=== PATIENT | female | born 1950 | race Caucasian/White ===

== ENCOUNTER → 2017-12-27 09:17 | Outpatient (CLI) | payer MEDICARE, OTHER, SELFPAY | PROVIDERS: Family Provider Family Medicine; PCP Family Medicine; Visit Provider Family Medicine | DX: Z78.0 Asymptomatic menopausal state (principal); Z90.722 Acquired absence of ovaries, bilateral; Z79.52 Long term (current) use of systemic steroids | CPT/HCPCS: 77080 ==

== ENCOUNTER → 2018-10-18 08:46 | Outpatient (CLI) | payer MEDICARE, OTHER, SELFPAY ==
--- NOTE | 2018-10-18 | DI.MG.S_ITS ---
BILATERAL DIGITAL SCREENING MAMMOGRAM 3D/2D WITH CAD: 10/18/2018 CLINICAL: Routine screening. Comparison is made to exams dated: 10/14/2017 mammogram, 09/26/2016 mammogram, and 06/25/2015 mammogram - [facility]. The tissue of both breasts is heterogeneously dense. This may lower the sensitivity of mammography. Current study was also evaluated with a Computer Aided Detection (CAD) system. There is a benign biopsy clip in the right breast. No significant masses, calcifications, or other findings are seen in either breast. There has been no significant interval change. IMPRESSION: NEGATIVE There is no mammographic evidence of malignancy. A 1 year screening mammogram is recommended. This exam was interpreted at Station ID: [id number]. NOTE: For mammograms, a report in lay terms will be sent to the patient. Approximately 15% of breast malignancies will not be visualized mammographically. In the management of a palpable breast mass, a negative mammogram must not discourage biopsy of a clinically suspicious lesion. Electronically Signed By: Ritesh selby/víctor:10/18/2018 10:39:49 letter sent: Normal Exam ACR BI-RADS Category 1: Negative 3341F
== END ==
PROVIDERS: Family Provider Family Medicine; PCP Family Medicine; Visit Provider Family Medicine
DX: Z12.31 Encounter for screening mammogram for malignant neoplasm of breast (principal)
CPT/HCPCS: 77063; 77067

== ENCOUNTER → 2018-11-29 07:41 | Outpatient (CLI) | payer MEDICARE, OTHER, SELFPAY ==
[2018-12-03 08:38] LABS: Lipoprofile NMR SEE SEPARATE REPORTS
== END ==
PROVIDERS: PCP Family Medicine; Visit Provider Family Medicine
DX: E78.5 Hyperlipidemia, unspecified (principal)
CPT/HCPCS: 36415; 83704

== ENCOUNTER → 2019-11-23 08:31 | Outpatient (CLI) | payer MEDICARE, OTHER, SELFPAY ==
--- NOTE | 2019-11-23 | DI.MG.S_ITS ---
BILATERAL DIGITAL SCREENING MAMMOGRAM 3D/2D WITH CAD: 11/23/2019 CLINICAL: Routine screening. Comparison is made to exams dated: 10/18/2018 mammogram, 10/14/2017 mammogram, and 09/26/2016 mammogram - [facility]. The tissue of both breasts is heterogeneously dense. This may lower the sensitivity of mammography. Current study was also evaluated with a Computer Aided Detection (CAD) system. There is a biopsy clip in the right breast. No significant masses, calcifications, or other findings are seen in either breast. There has been no significant interval change. IMPRESSION: NEGATIVE There is no mammographic evidence of malignancy. A 1 year screening mammogram is recommended. This exam was interpreted at Station ID: [id number]. NOTE: For mammograms, a report in lay terms will be sent to the patient. Approximately 15% of breast malignancies will not be visualized mammographically. In the management of a palpable breast mass, a negative mammogram must not discourage biopsy of a clinically suspicious lesion. Electronically Signed By: Ritesh selby/víctor:11/25/2019 08:17:12 letter sent: Normal Exam ACR BI-RADS Category 1: Negative 3341F
== END ==
PROVIDERS: PCP Family Medicine; Referring Provider Family Medicine; Visit Provider Family Medicine
DX: Z12.31 Encounter for screening mammogram for malignant neoplasm of breast (principal)
CPT/HCPCS: 77063; 77067

== ENCOUNTER → 2020-10-06 07:47 | Outpatient (CLI) | payer MEDICARE, OTHER, SELFPAY ==
[2020-10-06 08:24] LABS: Add Manual Diff / Slide Review NO; Basophils Absolute Auto 100 /uL (0-100); Basophils Percent Auto 1.3 % (0-2); Eosinophils Absolute Auto 0 /uL (0-450); Hematocrit 37.9 % (36-46); Hemoglobin 12.7 g/dL (12.0-16.0); Lymphocytes Absolute Auto 1500 /uL (1100-4500); Lymphocytes Percent Auto 31.7 % (25-40); Mean Corpuscular HGB Conc 33.4 % (30-36); Mean Corpuscular Hemoglobin 33.1 PG (26-34); Monocytes Absolute Auto 400 /uL (0-900); Monocytes Percent Auto 9.7 % (3-14); Neutrophils Absolute Auto 2600 /uL (1500-7000); Neutrophils Percent Auto 56.3 % (50-75); Platelet Count 205 X10^3/uL (150-400); Red Blood Cell Count 3.83 X10^6/uL (4.0-5.2); White Blood Cell Count 4.6 X10^3/uL (4.5-11.0)
[2020-10-06 08:40] LABS: Alanine Aminotransferase 25 IU/L (<35); Albumin 4.2 g/dL (3.5-5.0); Albumin Globulin Ratio 1.6 (1.0-2.8); Alkaline Phosphatase 54 U/L (38-126); Aspartate Aminotransferase 30 IU/L (14-36); Bilirubin Total 0.4 mg/dL (0.2-1.3); Blood Urea Nitrogen 15 mg/dL (7-17); Calcium 9.3 mg/dL (8.4-10.2); Carbon Dioxide 27 mmol/L (22-32); Chloride 99 mmol/L (98-107); Cholesterol 199 mg/dL (140-199); Estimated Glomerular Filt Rate > 60.0 mL/min (>60); Globulin 2.7 g/dL (1.7-4.1); Glucose 97 mg/dL (80-110); HDL Cholesterol 90 mg/dL (40-60); HEMOLYSIS < 15 (0-50); LDL Cholesterol Calculated 95 mg/dL (<100); Potassium 4.3 mmol/L (3.4-5.1); Sodium 131 mmol/L (137-145); Total Protein 6.9 g/dL (6.3-8.2); Triglycerides 68 mg/dL (35-150)
[2020-10-06 09:43] LABS: Thyroid Stimulating Hormone 1.33 uIU/mL (0.47-4.68)
== END ==
PROVIDERS: PCP Family Medicine; Referring Provider Family Medicine; Visit Provider Family Medicine
DX: Z00.00 Encounter for general adult medical examination without abnormal findings (principal); E78.5 Hyperlipidemia, unspecified
CPT/HCPCS: 36415; 80053; 80061; 84443; 85025

== ENCOUNTER 2020-12-10 07:30 | Outpatient (RCR) | payer MEDICARE, OTHER, SELFPAY ==
--- NOTE | 2020-10-20 15:31 | PT.OIE ---
Current Diagnoses Benign paroxysmal vertigo, bilateral (10/20/20) Dizziness and giddiness (10/20/20) Visit Care Team Role Provider Type Katie Marquez MD Attending Provider Physician Primary Care Provider Referring Provider Specialty: [facility] Address: [address] [place] [address], [facility] [place], [address] Email: [email or web address] Physical Therapy Initial Evaluation PT-OP-A Visit Information Start: 10/20/20 08:01 Freq: Status: Active Protocol: Document 10/20/20 13:30 AMB (Rec: 10/20/20 14:50 AMB [email or web address]) Out-Patient Physical Therapy Visit Information Visit Information Visit Type Initial Evaluation Visit Start Time 13:30 Visit Stop Time 14:15 Total Visit Minutes 45 Visit Number 1 PT-OP-B Current Condition Start: 10/20/20 08:01 Freq: Status: Active Protocol: Document 10/20/20 13:30 AMB (Rec: 10/20/20 13:51 AMB [id number]) Current Condition History of Current Condition Onset Date 5 years ago Current Complaints Vertigo History of Current Condition Vertigo comes and goes. The worst was when it lasted all day, was throwing up all day that was the worst in June. Usually lasts about an hour or even seconds. Can come on frequently for a while and then nothing for a few months. Feels fuzzy is the start of the symptoms feels rapid eye movements, nausea is often. Looking down and to the right can bring it on. Looking up while in quadruped in gardening. Denies rolling over in bed, on a bad day openening eyes can trigger dizziness. Denies neck pain denies headaches, denies concussion, denies ear pain/ pressure, hearing loss, denies lightheadedness (was on BP med for rosacea and stopped taking it, but that didn't change sx). Treatment Goals Patient/Caregiver Goals Get rid of vertigo Prior Functional Status Baseline Function- ADL's Independent Baseline Function- Mobility Independent Current Functional Impairments (Reported) Functional Limitations- ADL's Difficulty gardening, working on the computer Personal Factors Other Personal Factors That May Effect Allergies, jaw pain Therapy/Recovery PT-OP-C Subjective Start: 10/20/20 08:01 Freq: Status: Active Protocol: Document 10/20/20 13:30 AMB (Rec: 10/20/20 14:50 AMB [email or web address]) Patient Questionnaires Dizziness Handicap Inventory DHI Score 24 DHI Functional Impairment 20 to 39% Impaired (Score 20- 39) PT-OP-O Vestibular Start: 10/20/20 08:01 Freq: Status: Active Protocol: Document 10/20/20 13:30 AMB (Rec: 10/20/20 14:50 AMB [email or web address]) Vestibular Assessment Screening Tests Vestibular Artery Screen Negative Visual Testing Smooth Pursuits Horizontal WFL Smooth Pursuits Vertical WFL Saccades Horizontal WFL Saccades Vertical WFL Gaze Evoked Nystagmus With Fixation Negative Thrust Head Negative DVA (Line Degradation) 2 Positional Testing [place]-Hallpike Negative Left,Negative Right Rolling Test Negative Left,Negative Right Supine to Sit Negative Sit to Supine Negative Vestibular Function Tests Fukuda Test 90 degree turn L PT-OP-Q Treatments Start: 10/20/20 08:01 Freq: Status: Active Protocol: Document 10/20/20 13:30 AMB (Rec: 10/20/20 15:22 AMB [email or web address]) Neuro Re-Education Treatment Vestibular Rehabilitation X1 Viewing Background plain Distance From Target 5' Speed as tolerated-medium Position standing Reps/Duration 30 PT-OP-T Assessment and Plan Start: 10/20/20 08:01 Freq: Status: Active Protocol: Document 10/20/20 13:30 AMB (Rec: 10/20/20 14:50 AMB [email or web address]) Physical Therapy Assessment Rehab Potential Rehabilitation Potential Fair Evaluation Complexity Number of Personal Factors/Comorbidities 1-2 Number of Body Systems Impaired 3 Clinical Presentation at Evaluation Evolving Impairments Impairments Balance,Functional Activities, Vestibular Goals Two Impairment Functional activities Short Term Goal (STG) Lianna will garden for 30 minutes without dizziness. STG Duration 4 weeks Skilled Nursing Goal (LTG) Lianna will look diagonally without dizziness. LTG Duration 8 weeks One Impairment DVA Short Term Goal (STG) Lianna will tolerate 30 seconds of head turning activities without nausea/dizziness. STG Duration 4 weeks Airplane Pilot Crop Dusting Goal (LTG) Lianna will be consistent and independent with a vestibular HEP. LTG Duration 8 weeks Assessment Summary Assessment Lianna attends physical therapy with a 5 year history of on and off dizziness with nausea. She notes extremely variable course, sometime sx last a few seconds, once they lasted all day, variable frequency. Looking up to the left and down to the right seem to consistently bring on symptoms . She has been doing a variation of Jade Daroff and this seems to help relieve her symptoms when she is symptomatic. All BPPV testing today was negative. She did have symptoms of nausea with DVA line degradation but was officially WNL with 2 line difference, she did have a 90 degree turn with Fukuda stepping. Considering that she denies hypotension, concussion, hearing changes, ear fullness/pain, had a normal brain MRI per her report would consider L sided vestibular hypofuntion, and treat accordingly. Physical Therapy Plan Frequency and Duration Frequency of Treatment 1x/Week Duration of Treatment 8 weeks Plan of Care Start Date 10/20/20 Plan of Care End Date 12/15/20 Therapeutic Interventions Therapeutic Interventions Balance Training,Canalithic Repositioning,Manual Therapy, Neuromuscular Re-education, Self-Care/Home Management, Therapeutic Activities, Therapeutic Exercises, Vestibular Rehabilitation Next Visit Focus/Plan Next Note Type Treatment Note
--- NOTE | 2020-10-20 15:32 | PT.OPPOC ---
Physical, Occupational & Speech Therapy At [facility] Current Diagnoses Benign paroxysmal vertigo, bilateral (10/20/20) Dizziness and giddiness (10/20/20) Visit Care Team Role Provider Type Katie Marquez MD Attending Provider Physician Primary Care Provider Referring Provider Specialty: [facility] Address: [address] [place] [address], [facility] [place], [facility] Email: [email or web address] Plan Of Care PT-OP-T Assessment and Plan Start: 10/20/20 08:01 Freq: Status: Active Protocol: Document 10/20/20 13:30 AMB (Rec: 10/20/20 14:50 AMB [email or web address]) Physical Therapy Assessment Rehab Potential Rehabilitation Potential Fair Evaluation Complexity Number of Personal Factors/Comorbidities 1-2 Number of Body Systems Impaired 3 Clinical Presentation at Evaluation Evolving Impairments Impairments Balance,Functional Activities, Vestibular Goals Two Impairment Functional activities Short Term Goal (STG) Lianna will garden for 30 minutes without dizziness. STG Duration 4 weeks Funeral Pre Arrangement Counselor Goal (LTG) Lianna will look diagonally without dizziness. LTG Duration 8 weeks One Impairment DVA Short Term Goal (STG) Lianna will tolerate 30 seconds of head turning activities without nausea/dizziness. STG Duration 4 weeks Funeral Pre Arrangement Counselor Goal (LTG) Lianna will be consistent and independent with a vestibular HEP. LTG Duration 8 weeks Assessment Summary Assessment Lianna attends physical therapy with a 5 year history of on and off dizziness with nausea. She notes extremely variable course, sometime sx last a few seconds, once they lasted all day, variable frequency. Looking up to the left and down to the right seem to consistently bring on symptoms . She has been doing a variation of Jade Daroff and this seems to help relieve her symptoms when she is symptomatic. All BPPV testing today was negative. She did have symptoms of nausea with DVA line degradation but was officially WNL with 2 line difference, she did have a 90 degree turn with Fukuda stepping. Considering that she denies hypotension, concussion, hearing changes, ear fullness/pain, had a normal brain MRI per her report would consider L sided vestibular hypofuntion, and treat accordingly. Physical Therapy Plan Frequency and Duration Frequency of Treatment 1x/Week Duration of Treatment 8 weeks Plan of Care Start Date 10/20/20 Plan of Care End Date 12/15/20 Therapeutic Interventions Therapeutic Interventions Balance Training,Canalithic Repositioning,Manual Therapy, Neuromuscular Re-education, Self-Care/Home Management, Therapeutic Activities, Therapeutic Exercises, Vestibular Rehabilitation Next Visit Focus/Plan Next Note Type Treatment Note Plan of Care Dates Plan of Care Start Date 10/20/20 Plan of Care End Date 12/15/20 Electronically Signed by: Janey Cooper, PT 10/20/20 [id number] Please Sign and Return: I have reviewed this Plan of Care and certify that the skilled therapy services above are required to meet the patient?s needs. Physician Signature Date Printed Name and Credentials Clinical Instructor Signature Printed Name and Credentials
--- NOTE | 2020-10-27 11:52 | PT.OTN ---
Current Diagnoses Benign paroxysmal vertigo, bilateral (10/27/20) Dizziness and giddiness (10/27/20) Physical Therapy Treatment Note PT-OP-A Visit Information Start: 10/20/20 08:01 Freq: Status: Active Protocol: Document 10/27/20 11:00 AMB (Rec: 10/27/20 11:52 AMB [id number]) Out-Patient Physical Therapy Visit Information Visit Information Visit Type Treatment Note Visit Start Time 11:00 Visit Stop Time 11:45 Total Visit Minutes 45 Visit Number 2 PT-OP-B Current Condition Start: 10/20/20 08:01 Freq: Status: Active Protocol: Document 10/20/20 13:30 AMB (Rec: 10/20/20 13:51 AMB [id number]) Current Condition History of Current Condition Onset Date 5 years ago Current Complaints Vertigo History of Current Condition Vertigo comes and goes. The worst was when it lasted all day, was throwing up all day that was the worst in June. Usually lasts about an hour or even seconds. Can come on frequently for a while and then nothing for a few months. Feels fuzzy is the start of the symptoms feels rapid eye movements, nausea is often. Looking down and to the right can bring it on. Looking up while in quadruped in gardening. Denies rolling over in bed, on a bad day openening eyes can trigger dizziness. Denies neck pain denies headaches, denies concussion, denies ear pain/ pressure, hearing loss, denies lightheadedness (was on BP med for rosacea and stopped taking it, but that didn't change sx). Treatment Goals Patient/Caregiver Goals Get rid of vertigo Prior Functional Status Baseline Function- ADL's Independent Baseline Function- Mobility Independent Current Functional Impairments (Reported) Functional Limitations- ADL's Difficulty gardening, working on the computer Personal Factors Other Personal Factors That May Effect Allergies, jaw pain Therapy/Recovery PT-OP-C Subjective Start: 10/20/20 08:01 Freq: Status: Active Protocol: Document 10/27/20 11:00 AMB (Rec: 10/27/20 11:52 AMB [id number]) OP-PT Subjective Patient Comments Patient Comments Pt reports she has had a couple instances of feeling pulled to the left, no big dizzy spells PT-OP-O Vestibular Start: 10/20/20 08:01 Freq: Status: Active Protocol: Document 10/20/20 13:30 AMB (Rec: 10/20/20 14:50 AMB [email or web address]) Vestibular Assessment Screening Tests Vestibular Artery Screen Negative Visual Testing Smooth Pursuits Horizontal WFL Smooth Pursuits Vertical WFL Saccades Horizontal WFL Saccades Vertical WFL Gaze Evoked Nystagmus With Fixation Negative Thrust Head Negative DVA (Line Degradation) 2 Positional Testing [place]-Hallpike Negative Left,Negative Right Rolling Test Negative Left,Negative Right Supine to Sit Negative Sit to Supine Negative Vestibular Function Tests Fukuda Test 90 degree turn L PT-OP-Q Treatments Start: 10/20/20 08:01 Freq: Status: Active Protocol: Document 10/27/20 11:00 AMB (Rec: 10/27/20 11:52 AMB [id number]) Gym Equipment Shuttle Balance 1 Details RED Reps/Duration 10 min Comments challenging did not do much head turns Neuro Re-Education Treatment Vestibular Rehabilitation X1 Viewing Background plain Distance From Target 5' Speed 55bpm Position standing Reps/Duration 30x5 Other Activities 2 Details 3 step and bow Comments with 1 head turn- pt felt pulled to R [address] Comments horizontal, vertical, diagonal headturns, - looking up to the left/down to the right. [place] pulled to L PT-OP-T Assessment and Plan Start: 10/20/20 08:01 Freq: Status: Active Protocol: Document 10/27/20 11:00 AMB (Rec: 10/27/20 11:52 AMB [id number]) Physical Therapy Assessment Assessment Summary Assessment Lianna responded like a pt with vestibular hypofunction was feeling a bit off after all the exercises, so may have to back off if pt has lingering symptoms that are too detrimental to the rest of her day. Physical Therapy Plan Next Visit Focus/Plan Next Note Type Treatment Note Next Visit Plan Progress VOR and diagonal head turns
--- NOTE | 2020-11-02 11:50 | PT.OTN ---
Current Diagnoses Benign paroxysmal vertigo, bilateral (11/02/20) Dizziness and giddiness (11/02/20) Physical Therapy Treatment Note PT-OP-A Visit Information Start: 10/20/20 08:01 Freq: Status: Active Protocol: Document 11/02/20 07:30 AMB (Rec: 11/02/20 07:50 AMB [id number]) Out-Patient Physical Therapy Visit Information Visit Information Visit Type Treatment Note Visit Start Time 07:30 Visit Stop Time 08:15 Total Visit Minutes 45 Visit Number 3 PT-OP-B Current Condition Start: 10/20/20 08:01 Freq: Status: Active Protocol: Document 10/20/20 13:30 AMB (Rec: 10/20/20 13:51 AMB [id number]) Current Condition History of Current Condition Onset Date 5 years ago Current Complaints Vertigo History of Current Condition Vertigo comes and goes. The worst was when it lasted all day, was throwing up all day that was the worst in June. Usually lasts about an hour or even seconds. Can come on frequently for a while and then nothing for a few months. Feels fuzzy is the start of the symptoms feels rapid eye movements, nausea is often. Looking down and to the right can bring it on. Looking up while in quadruped in gardening. Denies rolling over in bed, on a bad day openening eyes can trigger dizziness. Denies neck pain denies headaches, denies concussion, denies ear pain/ pressure, hearing loss, denies lightheadedness (was on BP med for rosacea and stopped taking it, but that didn't change sx). Treatment Goals Patient/Caregiver Goals Get rid of vertigo Prior Functional Status Baseline Function- ADL's Independent Baseline Function- Mobility Independent Current Functional Impairments (Reported) Functional Limitations- ADL's Difficulty gardening, working on the computer Personal Factors Other Personal Factors That May Effect Allergies, jaw pain Therapy/Recovery PT-OP-C Subjective Start: 10/20/20 08:01 Freq: Status: Active Protocol: Document 11/02/20 07:30 AMB (Rec: 11/02/20 08:17 AMB [id number]) OP-PT Subjective Patient Comments Patient Comments Pt reports she had some symptoms with walking with a friend and turning to look at her, otherwise exercises are going well. PT-OP-O Vestibular Start: 10/20/20 08:01 Freq: Status: Active Protocol: Document 10/20/20 13:30 AMB (Rec: 10/20/20 14:50 AMB [email or web address]) Vestibular Assessment Screening Tests Vestibular Artery Screen Negative Visual Testing Smooth Pursuits Horizontal WFL Smooth Pursuits Vertical WFL Saccades Horizontal WFL Saccades Vertical WFL Gaze Evoked Nystagmus With Fixation Negative Thrust Head Negative DVA (Line Degradation) 2 Positional Testing [place]-Hallpike Negative Left,Negative Right Rolling Test Negative Left,Negative Right Supine to Sit Negative Sit to Supine Negative Vestibular Function Tests Fukuda Test 90 degree turn L PT-OP-Q Treatments Start: 10/20/20 08:01 Freq: Status: Active Protocol: Document 11/02/20 07:30 AMB (Rec: 11/02/20 07:50 AMB [id number]) Neuro Re-Education Treatment Vestibular Rehabilitation X1 Viewing Background plain Distance From Target 5' Speed 55bpm Position standing Reps/Duration 1 minx5 Comments Progressing tolerance for longer duration, added foam and modified tandem stance Other Activities 3 Details quadruped head turns Comments to simulate gardening- not provacative today 2 Details 3 step and bow Comments with 1 head turn- pt felt pulled to R [address] Comments horizontal, vertical, diagonal headturns, - looking up to the left/down to the right. [place] pulled to L PT-OP-T Assessment and Plan Start: 10/20/20 08:01 Freq: Status: Active Protocol: Document 11/02/20 07:30 AMB (Rec: 11/02/20 08:17 AMB [id number]) Physical Therapy Assessment Assessment Summary Assessment encouraged progression of speed of VOR and length of exercise at home. Pt tolerated all exercises with less dizziness today. Physical Therapy Plan Next Visit Focus/Plan Next Note Type Treatment Note Next Visit Plan Progress VOR and diagonal head turns
--- NOTE | 2020-11-11 08:20 | PT.OTN ---
Current Diagnoses Benign paroxysmal vertigo, bilateral (11/11/20) Dizziness and giddiness (11/11/20) Physical Therapy Treatment Note PT-OP-A Visit Information Start: 10/20/20 08:01 Freq: Status: Active Protocol: Document 11/11/20 07:35 AMB (Rec: 11/11/20 08:09 AMB [id number]) Out-Patient Physical Therapy Visit Information Visit Information Visit Type Treatment Note Visit Start Time 07:30 Visit Stop Time 08:15 Total Visit Minutes 45 Visit Number 4 PT-OP-B Current Condition Start: 10/20/20 08:01 Freq: Status: Active Protocol: Document 10/20/20 13:30 AMB (Rec: 10/20/20 13:51 AMB [id number]) Current Condition History of Current Condition Onset Date 5 years ago Current Complaints Vertigo History of Current Condition Vertigo comes and goes. The worst was when it lasted all day, was throwing up all day that was the worst in June. Usually lasts about an hour or even seconds. Can come on frequently for a while and then nothing for a few months. Feels fuzzy is the start of the symptoms feels rapid eye movements, nausea is often. Looking down and to the right can bring it on. Looking up while in quadruped in gardening. Denies rolling over in bed, on a bad day openening eyes can trigger dizziness. Denies neck pain denies headaches, denies concussion, denies ear pain/ pressure, hearing loss, denies lightheadedness (was on BP med for rosacea and stopped taking it, but that didn't change sx). Treatment Goals Patient/Caregiver Goals Get rid of vertigo Prior Functional Status Baseline Function- ADL's Independent Baseline Function- Mobility Independent Current Functional Impairments (Reported) Functional Limitations- ADL's Difficulty gardening, working on the computer Personal Factors Other Personal Factors That May Effect Allergies, jaw pain Therapy/Recovery PT-OP-C Subjective Start: 10/20/20 08:01 Freq: Status: Active Protocol: Document 11/11/20 07:35 AMB (Rec: 11/11/20 08:09 AMB [id number]) OP-PT Subjective Patient Comments Patient Comments Pt is noticing frequent bouts of low intensity dizziness, not full spinning PT-OP-O Vestibular Start: 10/20/20 08:01 Freq: Status: Active Protocol: Document 10/20/20 13:30 AMB (Rec: 10/20/20 14:50 AMB [email or web address]) Vestibular Assessment Screening Tests Vestibular Artery Screen Negative Visual Testing Smooth Pursuits Horizontal WFL Smooth Pursuits Vertical WFL Saccades Horizontal WFL Saccades Vertical WFL Gaze Evoked Nystagmus With Fixation Negative Thrust Head Negative DVA (Line Degradation) 2 Positional Testing [place]-Hallpike Negative Left,Negative Right Rolling Test Negative Left,Negative Right Supine to Sit Negative Sit to Supine Negative Vestibular Function Tests Fukuda Test 90 degree turn L PT-OP-Q Treatments Start: 10/20/20 08:01 Freq: Status: Active Protocol: Document 11/11/20 07:30 AMB (Rec: 11/11/20 08:20 AMB [id number]) Gym Equipment Shuttle Balance 1 Details GREEN Comments better today- challenged by modified tandem Neuro Re-Education Treatment Vestibular Rehabilitation X1 Viewing Background plain/ busy increased challenge Distance From Target 5' Speed 55bpm Position standing Reps/Duration 1 minx5 Comments Progressing tolerance for longer duration, added foam and modified tandem stance Other Activities 3 Details quadruped head turns Comments to simulate gardening- not provacative today 2 Details 3 step and bow Comments with 1 head turn- 1 [address] Comments horizontal, vertical, diagonal headturns, - PT-OP-T Assessment and Plan Start: 10/20/20 08:01 Freq: Status: Active Protocol: Document 11/11/20 07:30 AMB (Rec: 11/11/20 08:20 AMB [id number]) Physical Therapy Assessment Assessment Summary Assessment Encouraged progressing exercises with complicated background/ more challenging foot positions. Pt is more aware of her sx, but the severity of them appears to be decreasing. Physical Therapy Plan Next Visit Focus/Plan Next Note Type Treatment Note Next Visit Plan Progress VOR and diagonal head turns- finalize HEP
--- NOTE | 2020-11-17 12:58 | PT.OTN ---
Current Diagnoses Benign paroxysmal vertigo, bilateral (11/17/20) Dizziness and giddiness (11/17/20) Physical Therapy Treatment Note PT-OP-A Visit Information Start: 10/20/20 08:01 Freq: Status: Active Protocol: Document 11/17/20 09:00 AMB (Rec: 11/17/20 09:34 AMB [id number]) Out-Patient Physical Therapy Visit Information Visit Information Visit Type Treatment Note Visit Start Time 09:00 Visit Stop Time 09:45 Total Visit Minutes 45 Visit Number 5 PT-OP-B Current Condition Start: 10/20/20 08:01 Freq: Status: Active Protocol: Document 10/20/20 13:30 AMB (Rec: 10/20/20 13:51 AMB [id number]) Current Condition History of Current Condition Onset Date 5 years ago Current Complaints Vertigo History of Current Condition Vertigo comes and goes. The worst was when it lasted all day, was throwing up all day that was the worst in June. Usually lasts about an hour or even seconds. Can come on frequently for a while and then nothing for a few months. Feels fuzzy is the start of the symptoms feels rapid eye movements, nausea is often. Looking down and to the right can bring it on. Looking up while in quadruped in gardening. Denies rolling over in bed, on a bad day openening eyes can trigger dizziness. Denies neck pain denies headaches, denies concussion, denies ear pain/ pressure, hearing loss, denies lightheadedness (was on BP med for rosacea and stopped taking it, but that didn't change sx). Treatment Goals Patient/Caregiver Goals Get rid of vertigo Prior Functional Status Baseline Function- ADL's Independent Baseline Function- Mobility Independent Current Functional Impairments (Reported) Functional Limitations- ADL's Difficulty gardening, working on the computer Personal Factors Other Personal Factors That May Effect Allergies, jaw pain Therapy/Recovery PT-OP-C Subjective Start: 10/20/20 08:01 Freq: Status: Active Protocol: Document 11/11/20 07:35 AMB (Rec: 11/11/20 08:09 AMB [id number]) OP-PT Subjective Patient Comments Patient Comments Pt is noticing frequent bouts of low intensity dizziness, not full spinning PT-OP-O Vestibular Start: 10/20/20 08:01 Freq: Status: Active Protocol: Document 10/20/20 13:30 AMB (Rec: 10/20/20 14:50 AMB [id number]) Vestibular Assessment Screening Tests Vestibular Artery Screen Negative Visual Testing Smooth Pursuits Horizontal WFL Smooth Pursuits Vertical WFL Saccades Horizontal WFL Saccades Vertical WFL Gaze Evoked Nystagmus With Fixation Negative Thrust Head Negative DVA (Line Degradation) 2 Positional Testing Pima-Hallpike Negative Left,Negative Right Rolling Test Negative Left,Negative Right Supine to Sit Negative Sit to Supine Negative Vestibular Function Tests Fukuda Test 90 degree turn L PT-OP-Q Treatments Start: 10/20/20 08:01 Freq: Status: Active Protocol: Document 11/17/20 09:00 AMB (Rec: 11/17/20 12:58 AMB [id number]) Gym Equipment Shuttle Balance 1 Details BLUE Comments better today- challenged by modified tandem Neuro Re-Education Treatment Vestibular Rehabilitation X1 Viewing Background plain/ busy increased challenge Distance From Target 5' Position standing Reps/Duration 1 minx5 Comments Progressing tolerance for longer duration, added foam and modified tandem stance Other Activities 3 Details quadruped head turns Comments to simulate gardening- not provacative today 1 Details hallway Comments horizontal, vertical, diagonal headturns, - PT-OP-T Assessment and Plan Start: 10/20/20 08:01 Freq: Status: Active Protocol: Document 11/17/20 09:00 AMB (Rec: 11/17/20 09:34 AMB [id number]) Physical Therapy Assessment Goals Two Impairment Functional activities Short Term Goal (STG) Lianna will garden for 30 minutes without dizziness. STG Duration 4 weeks Jail Goal (LTG) Lianna will look diagonally without dizziness. LTG Duration 8 weeks One Impairment DVA Short Term Goal (STG) Lianna will tolerate 30 seconds of head turning activities without nausea/dizziness. STG Duration MET Card Decorator Goal (LTG) Lianna will be consistent and independent with a vestibular HEP. LTG Duration 8 weeks Assessment Summary Assessment Lianna will be reassesed next visit in 3 weeks, encouraged to increase frequency of exercises to 2-3x/day. Reassess Pima-Hallpike and supine roll test today, which again were negative, would recommend continued progression with current plan. Physical Therapy Plan Next Visit Focus/Plan Next Note Type Treatment Note Next Visit Plan Progress VOR and diagonal head turns- finalize HEP
--- NOTE | 2020-12-10 08:25 | PT.OTN ---
Current Diagnoses Benign paroxysmal vertigo, bilateral (12/10/20) Dizziness and giddiness (12/10/20) Physical Therapy Treatment Note PT-OP-A Visit Information Start: 10/20/20 08:01 Freq: Status: Active Protocol: Document 12/10/20 07:30 AMB (Rec: 12/10/20 08:24 AMB [id number]) Out-Patient Physical Therapy Visit Information Visit Information Visit Type Treatment Note Visit Start Time 07:30 Visit Stop Time 08:15 Total Visit Minutes 45 Visit Number 6 PT-OP-B Current Condition Start: 10/20/20 08:01 Freq: Status: Active Protocol: Document 10/20/20 13:30 AMB (Rec: 10/20/20 13:51 AMB [id number]) Current Condition History of Current Condition Onset Date 5 years ago Current Complaints Vertigo History of Current Condition Vertigo comes and goes. The worst was when it lasted all day, was throwing up all day that was the worst in June. Usually lasts about an hour or even seconds. Can come on frequently for a while and then nothing for a few months. Feels fuzzy is the start of the symptoms feels rapid eye movements, nausea is often. Looking down and to the right can bring it on. Looking up while in quadruped in gardening. Denies rolling over in bed, on a bad day openening eyes can trigger dizziness. Denies neck pain denies headaches, denies concussion, denies ear pain/ pressure, hearing loss, denies lightheadedness (was on BP med for rosacea and stopped taking it, but that didn't change sx). Treatment Goals Patient/Caregiver Goals Get rid of vertigo Prior Functional Status Baseline Function- ADL's Independent Baseline Function- Mobility Independent Current Functional Impairments (Reported) Functional Limitations- ADL's Difficulty gardening, working on the computer Personal Factors Other Personal Factors That May Effect Allergies, jaw pain Therapy/Recovery PT-OP-C Subjective Start: 10/20/20 08:01 Freq: Status: Active Protocol: Document 12/10/20 07:30 AMB (Rec: 12/10/20 08:24 AMB [id number]) OP-PT Subjective Patient Comments Patient Comments Stopped doing exercises regularly and when started doing them again they were a lot harder. PT-OP-O Vestibular Start: 10/20/20 08:01 Freq: Status: Active Protocol: Document 10/20/20 13:30 AMB (Rec: 10/20/20 14:50 AMB [id number]) Vestibular Assessment Screening Tests Vestibular Artery Screen Negative Visual Testing Smooth Pursuits Horizontal WFL Smooth Pursuits Vertical WFL Saccades Horizontal WFL Saccades Vertical WFL Gaze Evoked Nystagmus With Fixation Negative Thrust Head Negative DVA (Line Degradation) 2 Positional Testing Bryan-Hallpike Negative Left,Negative Right Rolling Test Negative Left,Negative Right Supine to Sit Negative Sit to Supine Negative Vestibular Function Tests Fukuda Test 90 degree turn L PT-OP-Q Treatments Start: 10/20/20 08:01 Freq: Status: Active Protocol: Document 12/10/20 07:30 AMB (Rec: 12/10/20 08:24 AMB [id number]) Gym Equipment Shuttle Balance 1 Details BLUE Comments better today- challenged by modified tandem--head turns- diagonal Neuro Re-Education Treatment Vestibular Rehabilitation X1 Viewing Background plain/ busy increased challenge Distance From Target 5' Position standing Reps/Duration 1 minx5 Comments Progressing tolerance for longer duration, added foam and modified tandem stance Other Activities 2 Details 3 step and bow Comments with 1 head turn- 1 Details hallway Comments horizontal, vertical, diagonal headturns, - PT-OP-T Assessment and Plan Start: 10/20/20 08:01 Freq: Status: Active Protocol: Document 12/10/20 07:30 AMB (Rec: 12/10/20 08:24 AMB [id number]) Physical Therapy Assessment Goals Two Impairment Functional activities Short Term Goal (STG) Lianna will garden for 30 minutes without dizziness.-- variable- STG Duration PARTIALLY MET Jail Goal (LTG) Lianna will look diagonally without dizziness. LTG Duration PARTIALLY MET One Impairment DVA Short Term Goal (STG) Lianna will tolerate 30 seconds of head turning activities without nausea/dizziness. STG Duration MET Pig Iron Loader Goal (LTG) Lianna will be consistent and independent with a vestibular HEP. LTG Duration MET Assessment Summary Assessment Lianna decreased the frequency of her exercises and noticed a return of symptoms. she started doing her exercises again and is feeling better now, but not 100%. She knows what to do as far as her exercises, and is ready to discharge, she states she just needs to hold herself accountable to doing her exercises and she should be fine. Physical Therapy Plan Discharge Physical Therapy Discharge Reasons Goals Met
== END 2020-12-10 13:18 | disposition home or self-care (01) ==
LOC: PHYS 07:30
PROVIDERS: PCP Family Medicine; Referring Provider Family Medicine; Visit Provider Family Medicine
DX: H81.13 Benign paroxysmal vertigo, bilateral (principal)
CPT/HCPCS: 97112; 97162

== ENCOUNTER → 2020-12-28 08:08 | Outpatient (CLI) | payer MEDICARE, OTHER, SELFPAY ==
--- NOTE | 2020-12-28 | DI.MG.S_ITS ---
BILATERAL DIGITAL SCREENING MAMMOGRAM 3D/2D WITH CAD: 12/28/2020 CLINICAL: Routine screening. Comparison is made to exams dated: 11/23/2019 mammogram, 10/18/2018 mammogram, 10/14/2017 mammogram, and 09/26/2016 mammogram - [facility]. The tissue of both breasts is heterogeneously dense. This may lower the sensitivity of mammography. Current study was also evaluated with a Computer Aided Detection (CAD) system. There is a biopsy clip in the right breast. No significant masses, calcifications, or other findings are seen in either breast. There has been no significant interval change. IMPRESSION: NEGATIVE There is no mammographic evidence of malignancy. A 1 year screening mammogram is recommended. This exam was interpreted at Station ID: [id number]. NOTE: For mammograms, a report in lay terms will be sent to the patient. Approximately 15% of breast malignancies will not be visualized mammographically. In the management of a palpable breast mass, a negative mammogram must not discourage biopsy of a clinically suspicious lesion. Electronically Signed By: Joon ibarra/víctor:12/28/2020 09:13:18 letter sent: Normal Exam ACR BI-RADS Category 1: Negative 3341F
== END ==
PROVIDERS: PCP Family Medicine; Referring Provider Family Medicine; Visit Provider Family Medicine
DX: Z12.31 Encounter for screening mammogram for malignant neoplasm of breast (principal)
CPT/HCPCS: 77063; 77067

== ENCOUNTER → 2021-12-30 11:29 | Outpatient (CLI) | payer MEDICARE, OTHER, SELFPAY ==
--- NOTE | 2021-12-30 | DI.MG.S_ITS ---
BILATERAL DIGITAL SCREENING MAMMOGRAM 3D/2D WITH CAD: 12/30/2021 CLINICAL: Routine screening. Comparison is made to exams dated: 12/28/2020 mammogram, 11/23/2019 mammogram, and 10/18/2018 mammogram - [facility]. The tissue of both breasts is heterogeneously dense. This may lower the sensitivity of mammography. Current study was also evaluated with a Computer Aided Detection (CAD) system. There is a biopsy clip in the right breast. No significant masses, calcifications, or other findings are seen in either breast. There has been no significant interval change. IMPRESSION: NEGATIVE There is no mammographic evidence of malignancy. A 1 year screening mammogram is recommended. Based on the Tyrer Cuzick model (a risk assessment model) the patient's lifetime risk is 6.1% and her 10 year risk is 4.6%. According to the ACR, ACS, and NCCN guidelines, an annual breast MRI exam along with mammogram is recommended if the patient's lifetime risk is 20% or greater. This exam was interpreted at Station ID: [id number]. NOTE: For mammograms, a report in lay terms will be sent to the patient. Approximately 15% of breast malignancies will not be visualized mammographically. In the management of a palpable breast mass, a negative mammogram must not discourage biopsy of a clinically suspicious lesion. Electronically Signed By: Ritesh selby/víctor:12/30/2021 12:04:21 letter sent: Normal Exam ACR BI-RADS Category 1: Negative 3341F
== END ==
PROVIDERS: PCP Family Medicine; Referring Provider Family Medicine; Visit Provider Family Medicine
DX: Z12.31 Encounter for screening mammogram for malignant neoplasm of breast (principal); Z13.820 Encounter for screening for osteoporosis; Z78.0 Asymptomatic menopausal state; Z90.710 Acquired absence of both cervix and uterus
CPT/HCPCS: 77063; 77067; 77080

== ENCOUNTER → 2023-01-02 12:40 | Outpatient (CLI) | payer MEDICARE, OTHER, SELFPAY ==
--- NOTE | 2023-01-02 | DI.MG.S_ITS ---
BILATERAL DIGITAL SCREENING MAMMOGRAM 3D/2D WITH CAD: 01/02/2023 CLINICAL: Routine screening. Comparison is made to exams dated: 12/30/2021 mammogram, 12/28/2020 mammogram, and 11/23/2019 mammogram - [facility]. Both breasts are heterogeneously dense, which may obscure small masses (category c / 51-75% glandular tissue). Current study was also evaluated with a Computer Aided Detection (CAD) system. There is an asymmetry in the left breast middle depth superior region seen on the mediolateral oblique view only. No other significant masses, calcifications, or other findings are seen in either breast. IMPRESSION: INCOMPLETE: NEEDS ADDITIONAL IMAGING EVALUATION The asymmetry in the left breast is indeterminate. Additional views with possible ultrasound are recommended. Based on the Tyrer Cuzick model (a risk assessment model) the patient's lifetime risk is 5.5% and her 10 year risk is 4.5%. According to the ACR, ACS, and NCCN guidelines, an annual breast MRI exam along with mammogram is recommended if the patient's lifetime risk is 20% or greater. This exam was interpreted at Station ID: [id number]. NOTE: For mammograms, a report in lay terms will be sent to the patient. Approximately 15% of breast malignancies will not be visualized mammographically. In the management of a palpable breast mass, a negative mammogram must not discourage biopsy of a clinically suspicious lesion. Electronically Signed By: Marco Garcia M.D. lc/:01/02/2023 13:59:54 letter sent: Additional Imaging Needed ACR BI-RADS Category 0: Incomplete 3340F
== END ==
PROVIDERS: PCP Family Medicine; Referring Provider Family Medicine; Visit Provider Family Medicine
DX: Z12.31 Encounter for screening mammogram for malignant neoplasm of breast (principal)
CPT/HCPCS: 77063; 77067

== ENCOUNTER → 2023-01-11 08:24 | Outpatient (CLI) | payer MEDICARE, OTHER, SELFPAY ==
--- NOTE | 2023-01-11 | DI.MG.S_ITS ---
UNILATERAL LEFT DIGITAL DIAGNOSTIC MAMMOGRAM 3D/2D WITH ADDITIONAL VIEWS: 01/11/2023 CLINICAL: Additional evaluation requested from prior study. Comparison is made to exams dated: 01/02/2023 mammogram, 12/30/2021 mammogram, and 12/28/2020 mammogram - [facility]. The left breast is heterogeneously dense, which may obscure small masses (category c / 51-75% glandular tissue). Theasymmetry in the left breast middle depth superior region seen on the mediolateral oblique view only is not seen in additional views. No other significant masses or calcifications are seen in the breast. IMPRESSION: BENIGN The left breast asymmetry seen on the screening mammogram likely respresents superimposed fibroglandular tissue and is benign. There is no mammographic evidence of malignancy. Return to annual mammogram screening schedule is recommended. Based on the Tyrer Cuzick model (a risk assessment model) the patient's lifetime risk is 5.5% and her 10 year risk is 4.5%. According to the ACR, ACS, and NCCN guidelines, an annual breast MRI exam along with mammogram is recommended if the patient's lifetime risk is 20% or greater. This exam was interpreted at Station ID: [id number]. NOTE: For mammograms, a report in lay terms will be sent to the patient. Approximately 15% of breast malignancies will not be visualized mammographically. In the management of a palpable breast mass, a negative mammogram must not discourage biopsy of a clinically suspicious lesion. Electronically Signed By: Albina Tao M.D. lk/:01/11/2023 08:56:37 letter sent: Normal Exam ACR BI-RADS Category 2: Benign Finding(s) 3342F
== END ==
PROVIDERS: Family Provider Family Medicine; PCP Family Medicine; Referring Provider Family Medicine; Visit Provider Family Medicine
DX: R92.8 Other abnormal and inconclusive findings on diagnostic imaging of breast (principal)
CPT/HCPCS: 77065; G0279

== ENCOUNTER 2023-04-06 10:30 | Outpatient (RCR) | payer MEDICARE, OTHER, SELFPAY ==
--- NOTE | 2023-02-23 13:08 | PT.OIE ---
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/23) Visit Care Team Role Provider Type Katie Marquez MD Attending Provider Physician Family Provider Primary Care Provider Referring Provider Specialty: Family Practice Address: [address] [place] [address], [address] Email: [email or web address] Physical Therapy Initial Evaluation PT-OP-A Visit Information Start: 02/23/23 08:46 Freq: Status: Active Protocol: Document 02/23/23 08:47 AMH (Rec: 02/23/23 08:52 AMH [id number]) Out-Patient Physical Therapy Visit Information Visit Information Visit Type Initial Evaluation Visit Start Time 08:50 Visit Stop Time 09:35 Total Visit Minutes 45 Evaluation Information Evaluation Date 02/23/23 PT-OP-B Current Condition Start: 02/23/23 08:46 Freq: Status: Active Protocol: Document 02/23/23 08:50 AMH (Rec: 02/23/23 09:31 AMH [id number]) Current Condition History of Current Condition Onset Date Current Complaints overactive bladder with urge incontinence and stress incontinence symptoms History of Current Condition pt reports over active bladder since her hysterectomy in the . She has triggers including if she has been running erands and she comes into the house she can leak and sudden urge. If she has any delay she is unable to stop the leakage. Lianna also describes urinary stress incontinence symptoms with strong cough or sneeze or exercise. Treatment Goals Patient/Caregiver Goals To eliminate urgency and incontinence PT-OP-C Subjective Start: 02/23/23 08:46 Freq: Status: Active Protocol: Document 02/23/23 08:50 AMH (Rec: 02/23/23 13:06 AMH [id number]) Patient Questionnaires Pelvic Pain and Urgency/Frequency Patient Symptom Scale Pelvic Pain Score 6 PT-OP-F Manual Assessment Start: 02/23/23 13:03 Freq: Status: Active Protocol: Document 02/23/23 08:50 AMH (Rec: 02/23/23 13:05 AMH [id number]) Manual Assessments Soft Tissue Assessment Soft Tissue Mobility Assessment with assessment of the abdominal wall there is scar tissue noted in the suprapubic fascia with decreased mobility of the bladder PT-OP-I Pelvic Floor Start: 02/23/23 08:46 Freq: Status: Active Protocol: Document 02/23/23 08:50 [facility] (Rec: 02/23/23 11:13 [facility] [id number]) Pelvic Floor Assessment Urine Pelvic Floor Surgery Yes: Full hysterectomy Urinary Symptoms Urge Sensation Leakage Size Medium Leakage Cause Cough,Exercise,Sneeze,Urge Other Leakage Causes triggers such as comming home after runing errands Leaks Per Day 2 Voiding Frequency 4-8 times per day Nocturia 0-1 Pads Used In 24 Hours 1-2 Urine Pad Type Maxi Pad Pelvic Clock Pelvic Clock 12-3 Atrophy Pelvic Clock 3-6 Atrophy Pelvic Clock 6-9 Atrophy Pelvic Clock 9-12 Atrophy Pelvic Clock Other pt presents with decreased ability to fully relax her pelvic floor following a pelvic floor contraction Contraction Ability Voluntary Contraction Weak Voluntary Relaxation Weak Manual Muscle Testing Left 2 Manual Muscle Testing Right 2 Manual Muscle Testing Anterior 2 Manual Muscle Testing Posterior 2 Muscle Endurance (Seconds) 4 Comments Pelvic Floor Comments pt fatigues quickly with pelvic floor contractions and has decreased ability to relax inbetween contractions as well as poor endurnance of the pelvic floor holds PT-OP-Q Treatments Start: 02/23/23 08:46 Freq: Status: Active Protocol: Document 02/23/23 08:50 [facility] (Rec: 02/23/23 11:07 [facility] [id number]) Therapeutic Exercises Supine Exercises supine ball squeeze with pelvic floor contraction Supine Exercise Name ADDED to HEP Side bilateral Reps/Minutes 10 reps holding 10 seconds and relaxing 10 seconds pelvic floor long holds Reps/Minutes 10 reps holding up to 10 sec and relaxing 10 sec Comments pt advised to cut this to 5 seconds when fatigued PT-OP-T Assessment and Plan Start: 02/23/23 08:46 Freq: Status: Active Protocol: Document 02/23/23 08:50 [facility] (Rec: 02/23/23 12:47 [facility] [id number]) Physical Therapy Assessment Rehab Potential Rehabilitation Potential Excellent Evaluation Complexity Number of Personal Factors/Comorbidities 0 Number of Body Systems Impaired 1-2 Clinical Presentation at Evaluation Stable Impairments Impairments Activity Tolerance,Functional Activities,Soft Tissue Mobility,Strength Other Impairments urinary incontinence and sudden urge to void Goals 3 Impairment Decreased endurance of the pelvic floor with pt fatiguing after a few seconds Short Term Goal (STG) Lianna is able to sustain a pelvic floor contraction in supine x 10 seconds STG Duration 5 weeks Fpc Goal (LTG) Lianna is able to sustain a pelvic floor contraction in standing for 5 seconds LTG Duration 8 weeks 2 Impairment Pelvic floor weakness Short Term Goal (STG) Lianna is given a home exercise program for pelvic floor strengthening STG Duration 3 weeks Healthcare Interpreter Goal (LTG) Lianna is able to increase the strength of the levator ani for improved bladder support by 1 muscle grade or better LTG Duration 8 weeks 1 Impairment urinary urgency with sudden urges to void causing leakage Short Term Goal (STG) Lianna is educated in the urge deference technique/bladder retraining as well as educated on bladder irritants STG Duration 4 weeks Healthcare Interpreter Goal (LTG) Lianna reports a overall reduction in urinary urgency and is better able to contol making it to the bathroom without a leak LTG Duration 8 weeks Assessment Summary Assessment Lianna is a 72 year old female referred to PT with complaints of overactive bladder with sudden urges that will cause her to leak. She also reports symptoms of urinary stress incontinence with cough, sneeze, or exercise. She has a history of a hysterectomy in 1993 and she notes that her symptoms of urgency started then. They have started worsening lately and Lianna notes she has gone from a Mini pad to now using a maxi pad so she now she is seeking treatment to prevent her symptoms from worsening. Lianna states that most of her leakage occurs with specific triggers such as arriving home after errands and when she gets out of the car to head into her house the urgency hits her intensely and she is not able to make it to the bathroom in time. With evaluation today there is a good amount of scar tissue present in the suprapubic fascia from the vertical scar from the hysterectomy surgery. Lianna has tenderness to palpation over the scar. There is decreased fascial mobilty of the suprapubic fascia. With pelvic floor exam Lianna tests 2/5 MMT for all aspects of her levator ani and she lacks endurance to sustain a pelvic floor contraction more than a few seconds. She has a difficult time fully relaxing her pelvic floor muscles after a contraction and fatigues quickly after a few reps. Lianna is a great candidate for pelvic floor therapy using EMG biofeedback for improved strength and endurance of the pelvic floor. She was given a bladder diary today to begin recording her voids and fluid intake. She was educated in the urge deference technique and taught to use this with her triggers. She tolerated treatment well today. Physical Therapy Plan Frequency and Duration Frequency of Treatment 1x/Week Duration of treatment (weeks) 8 Plan of Care Start Date 02/23/23 Plan of Care End Date 04/13/23 Therapeutic Interventions Therapeutic Interventions Home Exercise Program,Manual Therapy,Neuromuscular Re- education,Patient/Caregiver Education,Self-Care/Home Management,Soft Tissue Mobilization,Therapeutic Exercises Modalities Biofeedback Next Visit Focus/Plan Next Note Type Treatment Note Next Visit Plan Work on MFR techniques over the suprapubic fascia, begin EMG biofeedback for endurance training of the pelvic floor
--- NOTE | 2023-02-23 13:08 | PT.OPPOC ---
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/23) Visit Care Team Role Provider Type Kaite Marquez MD Attending Provider Physician Family Provider Primary Care Provider Referring Provider Specialty: Family Practice Address: [address] [place] [address], [facility] [place], [facility] Email: [email or web address] Plan Of Care PT-OP-T Assessment and Plan Start: 02/23/23 08:46 Freq: Status: Active Protocol: Document 02/23/23 08:50 [facility] (Rec: 02/23/23 12:47 [facility] [id number]) Physical Therapy Assessment Rehab Potential Rehabilitation Potential Excellent Evaluation Complexity Number of Personal Factors/Comorbidities 0 Number of Body Systems Impaired 1-2 Clinical Presentation at Evaluation Stable Impairments Impairments Activity Tolerance,Functional Activities,Soft Tissue Mobility,Strength Other Impairments urinary incontinence and sudden urge to void Goals 3 Impairment Decreased endurance of the pelvic floor with pt fatiguing after a few seconds Short Term Goal (STG) Lianna is able to sustain a pelvic floor contraction in supine x 10 seconds STG Duration 5 weeks Assisted Goal (LTG) Lianna is able to sustain a pelvic floor contraction in standing for 5 seconds LTG Duration 8 weeks 2 Impairment Pelvic floor weakness Short Term Goal (STG) Lianna is given a home exercise program for pelvic floor strengthening STG Duration 3 weeks Assisted Goal (LTG) Lianna is able to increase the strength of the levator ani for improved bladder support by 1 muscle grade or better LTG Duration 8 weeks 1 Impairment urinary urgency with sudden urges to void causing leakage Short Term Goal (STG) Lianna is educated in the urge deference technique/bladder retraining as well as educated on bladder irritants STG Duration 4 weeks Assisted Goal (LTG) Lianna reports a overall reduction in urinary urgency and is better able to control making it to the bathroom without a leak LTG Duration 8 weeks Assessment Summary Assessment Lianna is a 72 year old female referred to PT with complaints of overactive bladder with sudden urges that will cause her to leak. She also reports symptoms of urinary stress incontinence with cough, sneeze, or exercise. She has a history of a hysterectomy in 1993 and she notes that her symptoms of urgency started then. They have started worsening lately and Lianna notes she has gone from a Mini pad to now using a maxi pad so she now she is seeking treatment to prevent her symptoms from worsening. Lianna states that most of her leakage occurs with specific triggers such as arriving home after errands and when she gets out of the car to head into her house the urgency hits her intensely and she is not able to make it to the bathroom in time. With evaluation today there is a good amount of scar tissue present in the suprapubic fascia from the vertical scar from the hysterectomy surgery. Lianna has tenderness to palpation over the scar. There is decreased fascial mobility of the suprapubic fascia. With pelvic floor exam Lianna tests 2/5 MMT for all aspects of her levator ani and she lacks endurance to sustain a pelvic floor contraction more than a few seconds. She has a difficult time fully relaxing her pelvic floor muscles after a contraction and fatigues quickly after a few reps. Lianna is a great candidate for pelvic floor therapy using EMG biofeedback for improved strength and endurance of the pelvic floor. She was given a bladder diary today to begin recording her voids and fluid intake. She was educated in the urge deference technique and taught to use this with her triggers. She tolerated treatment well today. Physical Therapy Plan Frequency and Duration Frequency of Treatment 1x/Week Duration of treatment (weeks) 8 Plan of Care Start Date 02/23/23 Plan of Care End Date 04/13/23 Therapeutic Interventions Therapeutic Interventions Home Exercise Program,Manual Therapy,Neuromuscular Re- education,Patient/Caregiver Education,Self-Care/Home Management,Soft Tissue Mobilization,Therapeutic Exercises Modalities Biofeedback Next Visit Focus/Plan Next Note Type Treatment Note Next Visit Plan Work on MFR techniques over the suprapubic fascia, begin EMG biofeedback for endurance training of the pelvic floor Plan of Care Dates Plan of Care Start Date 02/23/23 Plan of Care End Date 04/13/23 Electronically Signed by: Kaylen King, PT 02/23/23 8824 If you are in agreement with this Plan of Care, please return a signed and dated copy. I have reviewed this Plan of Care and certify that the skilled therapy services above are required to meet the patient?s needs. Physician Signature Date Printed Name and Credentials Clinical Instructor Signature Printed Name and Credentials
--- NOTE | 2023-02-28 13:52 | PT.OTN ---
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) Physical Therapy Treatment Note PT-OP-A Visit Information Start: 02/23/23 08:46 Freq: Status: Active Protocol: Document 02/28/23 11:15 [facility] (Rec: 02/28/23 13:50 [facility] [id number]) Out-Patient Physical Therapy Visit Information Visit Information Visit Type Treatment Note Visit Start Time 11:15 Visit Stop Time 12:00 Total Visit Minutes 45 Visit Number 2 PT-OP-B Current Condition Start: 02/23/23 08:46 Freq: Status: Active Protocol: Document 02/23/23 08:50 [facility] (Rec: 02/23/23 09:31 [facility] [id number]) Current Condition History of Current Condition Onset Date Current Complaints overactive bladder with urge incontinence and stress incontinence symptoms History of Current Condition pt reports over active bladder since her hysterectomy in the . She has triggers including if she has been running erands and she comes into the house she can leak and sudden urge. If she has any delay she is unable to stop the leakage. Lianna also describes urinary stress incontinence symptoms with strong cough or sneeze or exercise. Treatment Goals Patient/Caregiver Goals To eliminate urgency and incontinence PT-OP-C Subjective Start: 02/23/23 08:46 Freq: Status: Active Protocol: Document 02/28/23 11:15 [facility] (Rec: 02/28/23 13:50 [facility] [id number]) OP-PT Subjective Patient Comments Patient Comments Lianna notes she can tell she gets fatigued when trying to hold her pelvic floor, she also has been doing her bladder diary at home and can tell she is going to the bathroom a lot just in case Patient Reported Progress Same PT-OP-F Manual Assessment Start: 02/23/23 13:03 Freq: Status: Active Protocol: Document 02/23/23 08:50 [facility] (Rec: 02/23/23 13:05 [facility] [id number]) Manual Assessments Soft Tissue Assessment Soft Tissue Mobility Assessment with assessment of the abdominal wall there is scar tissue noted in the suprapubic fascia with decreased mobility of the bladder PT-OP-I Pelvic Floor Start: 02/23/23 08:46 Freq: Status: Active Protocol: Document 02/23/23 08:50 [facility] (Rec: 02/23/23 11:13 [facility] [id number]) Pelvic Floor Assessment Urine Pelvic Floor Surgery Yes: Full hysterectomy Urinary Symptoms Urge Sensation Leakage Size Medium Leakage Cause Cough,Exercise,Sneeze,Urge Other Leakage Causes triggers such as comming home after runing errands Leaks Per Day 2 Voiding Frequency 4-8 times per day Nocturia 0-1 Pads Used In 24 Hours 1-2 Urine Pad Type Maxi Pad Pelvic Clock Pelvic Clock 12-3 Atrophy Pelvic Clock 3-6 Atrophy Pelvic Clock 6-9 Atrophy Pelvic Clock 9-12 Atrophy Pelvic Clock Other pt presents with decreased ability to fully relax her pelvic floor following a pelvic floor contraction Contraction Ability Voluntary Contraction Weak Voluntary Relaxation Weak Manual Muscle Testing Left 2 Manual Muscle Testing Right 2 Manual Muscle Testing Anterior 2 Manual Muscle Testing Posterior 2 Muscle Endurance (Seconds) 4 Comments Pelvic Floor Comments pt fatigues quickly with pelvic floor contractions and has decreased ability to relax inbetween contractions as well as poor endurnance of the pelvic floor holds PT-OP-Q Treatments Start: 02/23/23 08:46 Freq: Status: Active Protocol: Document 02/28/23 11:15 [facility] (Rec: 02/28/23 13:50 [facility] [id number]) Therapeutic Exercises Supine Exercises modified pelvic floor squat Reps/Minutes hold 1-2 min pelvic floor quick flicks Supine Exercise Name with EMG biofeedback Reps/Minutes x 10 reps supine ball squeeze with pelvic floor contraction Supine Exercise Name ADDED to HEP Side bilateral Reps/Minutes 10 reps holding 10 seconds and relaxing 10 seconds pelvic floor long holds Supine Exercise Name with EMG biofeedback Reps/Minutes 10 reps holding up to 10 sec and relaxing 10 sec Comments 10 sec hold x 10 sec relaxation Manual Therapy Treatment Soft Tissue Mobilization scar tissue mobiilzation of the suprapubic fascia Body Location suprapubic fascia Comments pt is tender in the left side of the bladder, tightness in the suprapubic fascia and restriced bladder mobility Self-Care/Home Management Treatment Education Patient Education Home Exercise Program Other Education reviewed bladder diary and pt was given 2 more weeks of bladder diarys. Urge deference technique was also reviewed. PT-OP-T Assessment and Plan Start: 02/23/23 08:46 Freq: Status: Active Protocol: Document 02/28/23 11:15 [facility] (Rec: 02/28/23 13:50 [facility] [id number]) Physical Therapy Assessment Assessment Summary Assessment EMG biofeedback was initiated today and endurance is lacking , pt did have a elevated resting tone at 4 uv to start and this decreased to baseline following treatment Physical Therapy Plan Frequency and Duration Frequency of Treatment 1x/Week Duration of treatment (weeks) 8 Plan of Care Start Date 02/23/23 Plan of Care End Date 04/13/23 Therapeutic Interventions Therapeutic Interventions Home Exercise Program,Manual Therapy,Neuromuscular Re- education,Patient/Caregiver Education,Self-Care/Home Management,Soft Tissue Mobilization,Therapeutic Exercises Modalities Biofeedback Next Visit Focus/Plan Next Note Type Treatment Note Next Visit Plan Work on MFR techniques over the suprapubic fascia, continue EMG biofeedback for endurance training of the pelvic floor, add in hip ER to HEP
--- NOTE | 2023-03-07 11:50 | PT.OTN ---
Current Diagnoses Overactive bladder (03/07/23) Stress incontinence (female) (male) (03/07/23) Urge incontinence (03/07/23) Pelvic muscle wasting (03/07/23) Physical Therapy Treatment Note PT-OP-A Visit Information Start: 02/23/23 08:46 Freq: Status: Active Protocol: Document 03/07/23 08:47 [facility] (Rec: 03/07/23 09:10 [facility] [id number]) Out-Patient Physical Therapy Visit Information Visit Information Visit Type Treatment Note Visit Start Time 08:50 Visit Stop Time 09:30 Total Visit Minutes 40 Visit Number 3 PT-OP-B Current Condition Start: 02/23/23 08:46 Freq: Status: Active Protocol: Document 02/23/23 08:50 [facility] (Rec: 02/23/23 09:31 [facility] [id number]) Current Condition History of Current Condition Onset Date Current Complaints overactive bladder with urge incontinence and stress incontinence symptoms History of Current Condition pt reports over active bladder since her hysterectomy in the . She has triggers including if she has been running erands and she comes into the house she can leak and sudden urge. If she has any delay she is unable to stop the leakage. Lianna also describes urinary stress incontinence symptoms with strong cough or sneeze or exercise. Treatment Goals Patient/Caregiver Goals To eliminate urgency and incontinence PT-OP-C Subjective Start: 02/23/23 08:46 Freq: Status: Active Protocol: Document 03/07/23 08:47 [facility] (Rec: 03/07/23 09:10 [facility] [id number]) OP-PT Subjective Patient Comments Patient Comments she was home this past week, very little leak issues, she is aware that caffine and alcohol cause a increase in her urgency and frequency, pt notes it is still really difficult to sustain a pelvic floor contraction PT-OP-F Manual Assessment Start: 02/23/23 13:03 Freq: Status: Active Protocol: Document 02/23/23 08:50 [facility] (Rec: 02/23/23 13:05 [facility] [id number]) Manual Assessments Soft Tissue Assessment Soft Tissue Mobility Assessment with assessment of the abdominal wall there is scar tissue noted in the suprapubic fascia with decreased mobility of the bladder PT-OP-I Pelvic Floor Start: 02/23/23 08:46 Freq: Status: Active Protocol: Document 03/07/23 08:47 [facility] (Rec: 03/07/23 09:28 [facility] [id number]) Pelvic Floor Assessment Pelvic Clock Pelvic Clock Other improved ablility to relax the pelvic floor to basline now PT-OP-Q Treatments Start: 02/23/23 08:46 Freq: Status: Active Protocol: Document 03/07/23 08:47 [facility] (Rec: 03/07/23 09:10 [facility] [id number]) Therapeutic Exercises Supine Exercises roll outs with theraband Supine Exercise Name hip ER with theraband in supine Reps/Minutes 3 x 10 reps templates for eccentric control and coordination Reps/Minutes x 8 min pelvic floor quick flicks Supine Exercise Name with EMG biofeedback Reps/Minutes x 10 reps supine ball squeeze with pelvic floor contraction Supine Exercise Name ADDED to HEP Side bilateral Reps/Minutes 10 reps holding 10 seconds and relaxing 10 seconds pelvic floor long holds Supine Exercise Name with EMG biofeedback Reps/Minutes 10 reps holding up to 10 sec and relaxing 10 sec Comments 10 sec hold x 10 sec relaxation PT-OP-T Assessment and Plan Start: 02/23/23 08:46 Freq: Status: Active Protocol: Document 03/07/23 08:47 [facility] (Rec: 03/07/23 09:10 [facility] [id number]) Physical Therapy Assessment Assessment Summary Assessment Lianna's resting tone was much improved today to baseline, she was able to relax her pelvic floor in between pelvic floor contractions. She is weak with her long holds and benefits from using the ball as a adductor assist. I added in hip ER with TB today to her HEP Physical Therapy Plan Frequency and Duration Frequency of Treatment 1x/Week Duration of treatment (weeks) 8 Plan of Care Start Date 02/23/23 Plan of Care End Date 04/13/23 Therapeutic Interventions Therapeutic Interventions Home Exercise Program,Manual Therapy,Neuromuscular Re- education,Patient/Caregiver Education,Self-Care/Home Management,Soft Tissue Mobilization,Therapeutic Exercises Modalities Biofeedback Next Visit Focus/Plan Next Note Type Treatment Note Next Visit Plan Work on MFR techniques over the suprapubic fascia, continue EMG biofeedback for endurance training of the pelvic floor, review hip ER, work in quadruped on TA activation
--- NOTE | 2023-03-14 16:20 | PT.OTN ---
Current Diagnoses Overactive bladder (03/14/23) Stress incontinence (female) (male) (03/14/23) Urge incontinence (03/14/23) Pelvic muscle wasting (03/14/23) Physical Therapy Treatment Note PT-OP-A Visit Information Start: 02/23/23 08:46 Freq: Status: Active Protocol: Document 03/14/23 08:49 [facility] (Rec: 03/14/23 09:31 [facility] [id number]) Out-Patient Physical Therapy Visit Information Visit Information Visit Type Treatment Note Visit Start Time 08:49 Visit Stop Time 09:30 Total Visit Minutes 41 Visit Number 4 PT-OP-B Current Condition Start: 02/23/23 08:46 Freq: Status: Active Protocol: Document 02/23/23 08:50 [facility] (Rec: 02/23/23 09:31 [facility] [id number]) Current Condition History of Current Condition Onset Date Current Complaints overactive bladder with urge incontinence and stress incontinence symptoms History of Current Condition pt reports over active bladder since her hysterectomy in the . She has triggers including if she has been running erands and she comes into the house she can leak and sudden urge. If she has any delay she is unable to stop the leakage. Lianna also describes urinary stress incontinence symptoms with strong cough or sneeze or exercise. Treatment Goals Patient/Caregiver Goals To eliminate urgency and incontinence PT-OP-C Subjective Start: 02/23/23 08:46 Freq: Status: Active Protocol: Document 03/14/23 08:49 [facility] (Rec: 03/14/23 09:31 [facility] [id number]) OP-PT Subjective Patient Comments Patient Comments pt notes things are going well , working on the the urge technique and freqnecy hasn't been bad. PT-OP-F Manual Assessment Start: 02/23/23 13:03 Freq: Status: Active Protocol: Document 02/23/23 08:50 [facility] (Rec: 02/23/23 13:05 [facility] [id number]) Manual Assessments Soft Tissue Assessment Soft Tissue Mobility Assessment with assessment of the abdominal wall there is scar tissue noted in the suprapubic fascia with decreased mobility of the bladder PT-OP-I Pelvic Floor Start: 02/23/23 08:46 Freq: Status: Active Protocol: Document 03/07/23 08:47 [facility] (Rec: 03/07/23 09:28 [facility] [id number]) Pelvic Floor Assessment Pelvic Clock Pelvic Clock Other improved ablility to relax the pelvic floor to basline now PT-OP-Q Treatments Start: 02/23/23 08:46 Freq: Status: Active Protocol: Document 03/14/23 08:49 [facility] (Rec: 03/14/23 09:31 [facility] [id number]) Therapeutic Exercises Supine Exercises templates for eccentric control and coordination Reps/Minutes x 8 min pelvic floor long holds Supine Exercise Name with EMG biofeedback, resting tone at baseline Reps/Minutes 10 reps holding up to 10 sec and relaxing 10 sec Comments average 3.2 and rest of 12.2 PT-OP-T Assessment and Plan Start: 02/23/23 08:46 Freq: Status: Active Protocol: Document 03/14/23 08:49 [facility] (Rec: 03/14/23 09:31 [facility] [id number]) Physical Therapy Assessment Goals 3 Impairment Decreased endurance of the pelvic floor with pt fatiguing after a few seconds Short Term Goal (STG) Lianna is able to sustain a pelvic floor contraction in supine x 10 seconds STG Duration 5 weeks Long-Term Goal (LTG) Lianna is able to sustain a pelvic floor contraction in standing for 5 seconds LTG Duration 8 weeks 2 Impairment Pelvic floor weakness Short Term Goal (STG) Lianna is given a home exercise program for pelvic floor strengthening STG Duration 3 weeks Associate Director Goal (LTG) Lianna is able to increase the strength of the levator ani for improved bladder support by 1 muscle grade or better LTG Duration 8 weeks 1 Impairment urinary urgency with sudden urges to void causing leakage Short Term Goal (STG) Lianna is educated in the urge deference technique/bladder retraining as well as educated on bladder irritants STG Duration 4 weeks Long-Term Goal (LTG) Lianna reports a overall reduction in urinary urgency and is better able to control making it to the bathroom without a leak LTG Duration 8 weeks Assessment Summary Assessment continued improvement of resting tone, endurance is still difficult for Lianna but is slowly improving. I had her elevate her pelvis with a wedge today and this helped with her endurance. She does have a wedge at home to use Physical Therapy Plan Frequency and Duration Frequency of Treatment 1x/Week Duration of treatment (weeks) 8 Plan of Care Start Date 02/23/23 Plan of Care End Date 11/02/23 Next Visit Focus/Plan Next Note Type Treatment Note Next Visit Plan continue working on endurance holds of the pelvic floor, check in with how pt did with a wedge at home, quadruped TA next visit and trial of NMES for the pelvic floor
--- NOTE | 2023-03-23 16:18 | PT.OTN ---
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) Physical Therapy Treatment Note PT-OP-A Visit Information Start: 02/23/23 08:46 Freq: Status: Active Protocol: Document 03/23/23 08:46 [facility] (Rec: 03/23/23 09:30 [facility] [id number]) Out-Patient Physical Therapy Visit Information Visit Information Visit Type Treatment Note Visit Start Time 09:45 Visit Stop Time 10:30 Total Visit Minutes 45 Visit Number 5 PT-OP-B Current Condition Start: 02/23/23 08:46 Freq: Status: Active Protocol: Document 02/23/23 08:50 [facility] (Rec: 02/23/23 09:31 [facility] [id number]) Current Condition History of Current Condition Onset Date Current Complaints overactive bladder with urge incontinence and stress incontinence symptoms History of Current Condition pt reports over active bladder since her hysterectomy in the . She has triggers including if she has been running erands and she comes into the house she can leak and sudden urge. If she has any delay she is unable to stop the leakage. Lianna also describes urinary stress incontinence symptoms with strong cough or sneeze or exercise. Treatment Goals Patient/Caregiver Goals To eliminate urgency and incontinence PT-OP-C Subjective Start: 02/23/23 08:46 Freq: Status: Active Protocol: Document 03/23/23 08:46 [facility] (Rec: 03/23/23 09:30 [facility] [id number]) OP-PT Subjective Patient Comments Patient Comments pt notes she is not having as many issues, she notes coffee causes more bladder irritation . She hasn't had any big urge episodes. Patient Reported Progress Improving PT-OP-F Manual Assessment Start: 02/23/23 13:03 Freq: Status: Active Protocol: Document 02/23/23 08:50 [facility] (Rec: 02/23/23 13:05 [facility] [id number]) Manual Assessments Soft Tissue Assessment Soft Tissue Mobility Assessment with assessment of the abdominal wall there is scar tissue noted in the suprapubic fascia with decreased mobility of the bladder PT-OP-I Pelvic Floor Start: 02/23/23 08:46 Freq: Status: Active Protocol: Document 03/07/23 08:47 [facility] (Rec: 09/26/23 09:28 [facility] [id number]) Pelvic Floor Assessment Pelvic Clock Pelvic Clock Other improved ablility to relax the pelvic floor to basline now PT-OP-Q Treatments Start: 02/23/23 08:46 Freq: Status: Active Protocol: Document 03/23/23 08:46 [facility] (Rec: 03/23/23 09:30 [facility] [id number]) Therapeutic Exercises Supine Exercises modified pelvic floor squat Reps/Minutes hold 1-2 min pelvic floor quick flicks Reps/Minutes x 10 reps Comments no biofeedback today pelvic floor long holds Supine Exercise Name with EMG biofeedback, resting tone at baseline Reps/Minutes 10 reps holding up to 10 sec and relaxing 10 sec Comments no biofeedback today Other Exercises quadruped TA Reps/Minutes x 10 Neuro Re-Education Treatment Other Activities NMES for the pelvic floor Comments Lianna went to level 16 on NMES PT-OP-T Assessment and Plan Start: 02/23/23 08:46 Freq: Status: Active Protocol: Document 03/23/23 08:46 [facility] (Rec: 03/23/23 09:30 [facility] [id number]) Physical Therapy Assessment Goals 3 Impairment Decreased endurance of the pelvic floor with pt fatiguing after a few seconds Short Term Goal (STG) Lianna is able to sustain a pelvic floor contraction in supine x 10 seconds STG Duration 5 weeks Retirement Goal (LTG) Lianna is able to sustain a pelvic floor contraction in standing for 5 seconds LTG Duration 8 weeks 2 Impairment Pelvic floor weakness Short Term Goal (STG) Lianna is given a home exercise program for pelvic floor strengthening STG Duration 3 weeks Sales Associate Cashier Goal (LTG) Lianna is able to increase the strength of the levator ani for improved bladder support by 1 muscle grade or better LTG Duration 8 weeks 1 Impairment urinary urgency with sudden urges to void causing leakage Short Term Goal (STG) Lianna is educated in the urge deference technique/bladder retraining as well as educated on bladder irritants STG Duration 4 weeks Sales Associate Cashier Goal (LTG) Lianna reports a overall reduction in urinary urgency and is better able to contol making it to the bathroom without a leak LTG Duration 8 weeks Assessment Summary Assessment trial of NMES today went well and Lianna felt more of the stim on her lateral pringle verses her anterior wall. I added in TA in quadruped for her as well to improve anterior facilitation Physical Therapy Plan Frequency and Duration Frequency of Treatment 1x/Week Duration of treatment (weeks) 8 Plan of Care Start Date 02/23/23 Plan of Care End Date 04/13/23 Therapeutic Interventions Therapeutic Interventions Home Exercise Program,Manual Therapy,Neuromuscular Re- education,Patient/Caregiver Education,Self-Care/Home Management,Soft Tissue Mobilization,Therapeutic Exercises Modalities Biofeedback Next Visit Focus/Plan Next Note Type Treatment Note Next Visit Plan this will be Lianna's last visit so review all HEP and look at her endurance holds on EMG biofeedback
--- NOTE | 2023-04-06 11:15 | PT.OTN ---
Current Diagnoses Overactive bladder (04/06/23) Stress incontinence (female) (male) (04/06/23) Urge incontinence (04/06/23) Pelvic muscle wasting (04/06/23) Physical Therapy Treatment Note PT-OP-A Visit Information Start: 02/23/23 08:46 Freq: Status: Active Protocol: Document 04/06/23 10:34 [facility] (Rec: 04/06/23 11:15 [facility] [id number]) Out-Patient Physical Therapy Visit Information Visit Information Visit Type Treatment Note Visit Start Time 10:34 Visit Stop Time 11:15 Total Visit Minutes 41 Visit Number 6 PT-OP-B Current Condition Start: 02/23/23 08:46 Freq: Status: Active Protocol: Document 02/23/23 08:50 [facility] (Rec: 02/23/23 09:31 [facility] [id number]) Current Condition History of Current Condition Onset Date Current Complaints overactive bladder with urge incontinence and stress incontinence symptoms History of Current Condition pt reports over active bladder since her hysterectomy in the . She has triggers including if she has been running erands and she comes into the house she can leak and sudden urge. If she has any delay she is unable to stop the leakage. Lianna also describes urinary stress incontinence symptoms with strong cough or sneeze or exercise. Treatment Goals Patient/Caregiver Goals To eliminate urgency and incontinence PT-OP-C Subjective Start: 02/23/23 08:46 Freq: Status: Active Protocol: Document 04/06/23 10:34 [facility] (Rec: 04/06/23 11:15 [facility] [id number]) OP-PT Subjective Patient Comments Patient Comments pt notes symptoms are better and she realizes coffee is a bladder irritant PT-OP-F Manual Assessment Start: 02/23/23 13:03 Freq: Status: Active Protocol: Document 02/23/23 08:50 [facility] (Rec: 02/23/23 13:05 [facility] [id number]) Manual Assessments Soft Tissue Assessment Soft Tissue Mobility Assessment with assessment of the abdominal wall there is scar tissue noted in the suprapubic fascia with decreased mobility of the bladder PT-OP-I Pelvic Floor Start: 02/23/23 08:46 Freq: Status: Active Protocol: Document 03/07/23 08:47 [facility] (Rec: 03/07/23 09:28 [facility] [id number]) Pelvic Floor Assessment Pelvic Clock Pelvic Clock Other improved ablility to relax the pelvic floor to basline now PT-OP-Q Treatments Start: 02/23/23 08:46 Freq: Status: Active Protocol: Document 04/06/23 10:34 [facility] (Rec: 04/06/23 11:15 [facility] [id number]) Therapeutic Exercises Supine Exercises pelvic floor quick flicks Reps/Minutes x 10 reps Comments no biofeedback today supine ball squeeze with pelvic floor contraction Equipment Used x 10 Reps/Minutes 7.0 average and max of 25 pelvic floor long holds Comments 5.2 uv average and max 20 Neuro Re-Education Treatment Other Activities NMES for the pelvic floor Comments today Lianna could feel sensation at level 5 and went as high as level 8 PT-OP-T Assessment and Plan Start: 02/23/23 08:46 Freq: Status: Active Protocol: Document 04/06/23 10:34 [facility] (Rec: 04/06/23 11:15 [facility] [id number]) Physical Therapy Assessment Goals 3 Impairment Decreased endurance of the pelvic floor with pt fatiguing after a few seconds Short Term Goal (STG) Lianna is able to sustain a pelvic floor contraction in supine x 10 seconds good progress and pt will continue to work on this STG Duration 5 weeks Tool Drawing Checker Goal (LTG) Lianna is able to sustain a pelvic floor contraction in standing for 5 seconds Lianna is working on this but it is difficult for her to feel her pelvic floor in standing LTG Duration 8 weeks 2 Impairment Pelvic floor weakness Short Term Goal (STG) Lianna is given a home exercise program for pelvic floor strengthening STG Duration 3 weeks Detention Goal (LTG) Lianna is able to increase the strength of the levator ani for improved bladder support by 1 muscle grade or better LTG Duration 8 weeks 1 Impairment urinary urgency with sudden urges to void causing leakage Short Term Goal (STG) Lianna is educated in the urge deference technique/bladder retraining as well as educated on bladder irritants Goal met STG Duration 4 weeks Tool Drawing Checker Goal (LTG) Lianna reports a overall reduction in urinary urgency and is better able to contol making it to the bathroom without a leak Good progress LTG Duration 8 weeks Assessment Summary Assessment Lianna is feeling good improvments of her pelvic floor strength and decreased leakage. She is headed to [place] for the winter so this will be her last visit in PT Physical Therapy Plan Discharge Physical Therapy Discharge Reasons No Longer Attending PT Discharge Comments pt will be moving to [place] for the next [address]
== END 2023-06-26 15:11 | disposition home or self-care (01) ==
LOC: PHYS 10:30
PROVIDERS: Absent Provider Family Medicine; Family Provider Family Medicine; PCP Family Medicine; Referring Provider Family Medicine; Visit Provider Family Medicine
DX: N32.81 Overactive bladder (principal); N81.84 Pelvic muscle wasting; N39.41 Urge incontinence; N39.3 Stress incontinence (female) (male)
CPT/HCPCS: 97110; 97112; 97140; 97161; 97535

== ENCOUNTER → 2024-01-15 | Outpatient (CLI) | payer MEDICARE, OTHER, SELFPAY ==
--- NOTE | 2024-01-15 14:58 | DI.MG.S_ITS ---
BILATERAL DIGITAL SCREENING MAMMOGRAM 3D/2D WITH CAD: 01/15/2024 CLINICAL: Routine screening. Comparison is made to exams dated: 01/02/2023 mammogram, 12/30/2021 mammogram, and 12/28/2020 mammogram - [facility]. Both breasts are heterogeneously dense, which may obscure small masses (category c / 51-75% glandular tissue). Current study was also evaluated with a Computer Aided Detection (CAD) system. There is a biopsy clip in the right breast. No significant masses, calcifications, or other findings are seen in either breast. There has been no significant interval change. IMPRESSION: BENIGN There is no mammographic evidence of malignancy. A 1 year screening mammogram is recommended. Based on the Tyrer Cuzick model (a risk assessment model) the patient's lifetime risk is 5.2% and her 10 year risk is 4.7%. According to the ACR, ACS, and NCCN guidelines, an annual breast MRI exam along with mammogram is recommended if the patient's lifetime risk is 20% or greater. This exam was interpreted at Station ID: [id number]. NOTE: For mammograms, a report in lay terms will be sent to the patient. Approximately 15% of breast malignancies will not be visualized mammographically. In the management of a palpable breast mass, a negative mammogram must not discourage biopsy of a clinically suspicious lesion. Electronically Signed By: Sara Segura M.D., Ph.D. kishore/víctor:01/16/2024 11:45:10 letter sent: Normal Exam ACR BI-RADS Category 2: Benign Finding(s) [id number]
== END ==
PROVIDERS: Family Provider Family Medicine; PCP Family Medicine; Referring Provider Family Medicine; Visit Provider Family Medicine
DX: Z12.31 Encounter for screening mammogram for malignant neoplasm of breast (principal); R92.333 Mammographic heterogeneous density, bilateral breasts
CPT/HCPCS: 77063; 77067

== ENCOUNTER → 2025-01-15 11:10 | Outpatient (CLI) | payer MEDICARE, OTHER, SELFPAY ==
--- NOTE | 2025-01-15 11:12 | DI.MG.S_ITS ---
MM screening mammo BI: 01/15/2025. BI-RADS: 2 CLINICAL: 74-year old female for bilateral screening mammogram. Tyrer-Cuzick lifetime risk of 5.6%. No personal or first-degree family history of breast cancer. The patient had a prior right breast biopsy. PRIOR EXAMS 01/15/2024, 01/11/2023, 01/02/2023, 12/30/2021. MAMMOGRAPHY TECHNIQUE: 2D and 3D (tomosynthesis) digital mammographic views obtained, with additional images as needed for full coverage. Current study was also evaluated with a Computer Aided Detection (CAD) system. DENSITY C. The breasts are heterogeneously dense, which may obscure small masses. MAMMOGRAPHY FINDINGS Right: Biopsy marker present on the right. There are no suspicious masses, calcifications, or other findings in the breast. Left: No suspicious mass, asymmetry, microcalcification, or other abnormality seen. IMPRESSION: Right * No evidence of malignancy with benign findings. Left * No evidence of malignancy. RECOMMENDATIONS Bilateral * Annual screening mammography. OVERALL ASSESSMENT CATEGORY BI-RADS-2: Benign. The [employer] recommends annual screening mammography beginning at age 40 for women with average risk of breast cancer. ELECTRONICALLY SIGNED: Guerline Mnoroy M.D. on 01/15/2025 at 12:18:42 PM PT Interpreting Station ID: [id number]
== END ==
PROVIDERS: Family Provider Family Medicine; PCP Family Medicine; Referring Provider Family Medicine; Visit Provider Family Medicine
DX: Z12.31 Encounter for screening mammogram for malignant neoplasm of breast (principal); R92.333 Mammographic heterogeneous density, bilateral breasts
CPT/HCPCS: 77063; 77067

== ENCOUNTER → 2025-03-18 10:29 | Outpatient (CLI) | payer MEDICARE, OTHER, SELFPAY ==
--- NOTE | 2025-03-18 10:31 | DI.RAD.S_ITS ---
PROCEDURE: XR KNEE LT 3V INDICATIONS: CHRONIC PAIN OF LT KNEE TECHNIQUE: 3 views of the knee were acquired. COMPARISON: None. FINDINGS: Bones: There are no osseous abnormalities. 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 Small suprapatellar effusion. A 5 mm calcification in the medial periarticular region may represent a calcified meniscus which is impinging the MCL. 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 This could indicate MCL tear Dictated by: Syd Bazzi M.D. on 03/19/2025 at 10:19 Approved by: Syd Bazzi M.D. on 03/19/2025 at 10:20
== END ==
PROVIDERS: Family Provider Family Medicine; PCP Family Medicine; Referring Provider Family Medicine; Visit Provider Family Medicine
DX: M17.12 Unilateral primary osteoarthritis, left knee (principal); M11.262 Other chondrocalcinosis, left knee; M25.462 Effusion, left knee; M25.562 Pain in left knee; G89.29 Other chronic pain
CPT/HCPCS: 73562